=== PATIENT | female | born 1960 | race Caucasian/White ===

== ENCOUNTER 2020-06-12 13:47 | Emergency (ER) | payer OTHER, MEDICAID, SELFPAY ==
[2020-06-12 13:56] VITALS: BP 131/90; PULSE 110; RESP 92; TEMP 36.9; O2SAT 98; BMI 21.1
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
[2020-06-12] MEDS: TET,DIPH,PERTUSS(ACELL),VAC/PF 0.5 ML SYRINGE IM (14:26)
[2020-06-12] MEDS: HEPATITIS B VAC (ENGERIX-B) 10 MCG/0.5 ML VIAL 20 MCG IM (14:27)
[2020-06-12 14:40] LABS: Alanine Aminotransferase 25 IU/L (<35)
[2020-06-12 16:36] LABS: HIV 1 & 2 Ab/Ag 4th Gen Combo NEGATIVE (NEGATIVE); Hep C Virus Ab w/Reflex Quant NEGATIVE s/c (NEGATIVE)
[2020-06-13 09:09] LABS: Hepatitis B Surf Ab Qualitativ Non Reactive (.)
== END 2020-06-12 14:57 | disposition home or self-care (01) ==
PROVIDERS: Emergency Provider Nurse Practitioner; Family Provider Family Medicine
DX: S61.239A Puncture wound without foreign body of unspecified finger without damage to nail, initial encounter (principal); Z77.21 Contact with and (suspected) exposure to potentially hazardous body fluids; Z23 Encounter for immunization
CPT/HCPCS: 36415; 84460; 86706; 86803; 87389; 90471; 90746; 99283; 90715